=== PATIENT | female | born 1995 | race Caucasian/White ===

== ENCOUNTER → 2022-07-30 | Outpatient (CLI) | payer BC, OTHER ==
[~2022-07-30] MED LIST: OXYACE5T PO; SILSUL1TC TOP; SPIR50 PO
== END | disposition home or self-care (01) ==
LOC: LAB SHORT 11:38
DX: J02.9 Acute pharyngitis, unspecified (principal)
CPT/HCPCS: 87081

== ENCOUNTER → 2024-01-08 | Outpatient (CLI) | payer OTHER | LOC: LAB SHORT 09:00 → LAB 09:00 | DX: K21.9 Gastro-esophageal reflux disease without esophagitis (principal) | CPT/HCPCS: 87338 ==

== ENCOUNTER → 2024-03-17 | Outpatient (CLI) | payer OTHER | END | disposition home or self-care (01) | LOC: LAB SHORT 13:47 → LAB 13:47 | DX: J02.9 Acute pharyngitis, unspecified (principal) | CPT/HCPCS: 87077; 87081; 87185 ==